=== PATIENT | male | born 1995 | race Caucasian/White ===

== ENCOUNTER 2018-07-19 11:12 | Emergency (ER) | payer SELFPAY ==
[~2018-07-19] VITALS: Ht 172.7 cm; Wt 68.0 kg
--- NOTE | 2018-07-19 11:52 | NUR ---
PT IS IN ROOM #2B. DR PASTRANA EVALUATED THE PT.
[2018-07-19] MEDS: LIDOCAINE 1%-EPI 1:100,000 20 ML VIAL TP ONE (12:22)
[2018-07-19] MEDS ORDERED: NEOMY/BACITRA/POLYMYXIN B OINT UD PACKET TP ONE (12:29)
[2018-07-19] MEDS: NEOMY/BACITRA/POLYMYXIN B OINT UD PACKET TP ONE (12:34)
--- NOTE | 2018-07-19 12:59 | NUR ---
PT WAS D/C TO HOME. D/C INSTRUCTIONS GIVEN TO THE PT. NO BLEEDING. DRESSING IS INTACT.
[2018-07-19 13:00] VITALS: BP 132/71
== END 2018-07-19 13:01 | disposition home or self-care (01) ==
LOC: ER 11:12
DX: S01.21XA Laceration without foreign body of nose, initial encounter (principal); S09.90XA Unspecified injury of head, initial encounter; V59.9XXA Occupant (driver) (passenger) of pick-up truck or van injured in unspecified traffic accident, initial encounter; Y93.89 Activity, other specified; Y92.89 Other specified places as the place of occurrence of the external cause; Y99.8 Other external cause status
CPT/HCPCS: 12013; 70450; 72125; 99284; J3490; A4217; A4663